=== PATIENT | male | born 1990 | race Caucasian/White ===

== ENCOUNTER 2019-05-05 10:23 | Emergency (ER) | payer BC, OTHER ==
[~2019-05-05] VITALS: Ht 180.3 cm; Wt 90.7 kg
[2019-05-05 12:30] VITALS: BP 138/86
[2019-05-05] MEDS ORDERED: NORCO 5-325 TA1 EAC1 PO (13:02)
[2019-05-05] MEDS ORDERED: NEOMYC-POLYM-DEX5 ML OPHTHALMIC (13:02)
== END 2019-05-05 13:05 | disposition home or self-care (01) ==
LOC: ER 10:23
DX: S05.02XA Injury of conjunctiva and corneal abrasion without foreign body, left eye, initial encounter (principal); F90.9 Attention-deficit hyperactivity disorder, unspecified type; F32.9 Major depressive disorder, single episode, unspecified; W51.XXXA Accidental striking against or bumped into by another person, initial encounter; Y93.11 Activity, swimming; Y92.34 Swimming pool (public) as the place of occurrence of the external cause; Y99.8 Other external cause status